=== PATIENT | female | born 1995 | race Caucasian/White ===

== ENCOUNTER 2020-04-26 07:48 | Outpatient (CLI) | payer OTHER, SELFPAY ==
--- NOTE | ~2020-04-26 | PE_ITS ---
EXAMINATION: PET skull to mid thigh DATE: 04/26/2020 10:14 INDICATION: Hilar lymphadenopathy. TECHNIQUE: Blood glucose level was 82 mg/dL. 7.175 mCi of 18-fluorodeoxyglucose (18-FDG) was administ ered i.v. Low dose computed tomography (CT) images were acquired from the base of the brain to the pr oximal thighs for attenuation correction and anatomic localization. Automated exposure control was em ployed. Dose-length product (DLP) was 432 mGy-cm. Positron emission tomography (PET) images were acqu ired in the same distribution. COMPARISON: None FINDINGS: Head/neck: There is increased activity in the major salivary glands, oral cavity, palatine tonsils, a nd glottis without CT correlate, likely physiologic. There are no pathologically enlarged lymph nodes . Chest: There is mild scarring at the lung apices. There is a 9 mm nodule with eccentric calcification in right lower lobe without increased activity, likely benign. No pleural effusion. The heart size i s normal. No pericardial effusion. There is increased activity in a normal-sized calcified right joesph r lymph node. Abdomen/pelvis/proximal thighs: The liver, gallbladder, spleen, pancreas, adrenal glands, and kidneys are normal. There are no dilated loops of bowel. There is an intrauterine device in expected positio n. There are no pathologically enlarged lymph nodes. There is no free intraperitoneal fluid. There is no osseous malignancy. IMPRESSION: 1. Calcified right hilar lymph node with increased activity, consistent with granulomatous disease. Reviewed, dictated and finalized at location A. [employer] IMPRESSION: 1. Calcified right hilar lymph node with increased activity, consistent with gr anulomatous disease.
[2020-04-26 08:11] LABS: Glucose Point of Care 82 (65-105)
== END 2020-04-26 07:49 | disposition home or self-care (01) ==
PROVIDERS: PCP Nurse Practitioner; Visit Provider Nurse Practitioner
DX: R59.0 Localized enlarged lymph nodes (principal)
CPT/HCPCS: 78815; 82948; A9552

== ENCOUNTER 2021-03-15 10:50 | Emergency (ER) | payer OTHER, SELFPAY ==
--- NOTE | ~2021-03-15 | XR_ITS ---
EXAMINATION: XR chest 2V DATE: 03/15/2021 11:36 INDICATION: Cough. Left anterior chest wall pain. TECHNIQUE: Frontal and lateral views of the chest were obtained. COMPARISON: PET CT 04/26/2020 FINDINGS: A calcified right lung nodule is consistent with old granulomatous disease. No pneumonia, p leural effusion, or pneumothorax. The heart size is normal. IMPRESSION: 1. No acute cardiopulmonary disease. Reviewed, dictated and finalized at location B. [employer]
--- NOTE | 2021-03-15 11:01 | ED.URI ---
HPI - URI/Sore Throat General Chief Complaint: Upper Respiratory Infection Stated Complaint: cough,lt side rib pain Time Seen by Provider: 03/15/21 11:43 Source: patient and RN notes reviewed Mode of arrival: ambulatory Limitations: no limitations History of Present Illness HPI Narrative: 25-year-old female presents with concern for 2-week history of cough and left anterior chest wall pain. Reports pain worsens with movements, coughing, deep breathing. Reports tender to touch. Reports the pain setting gradually has worsened the last day. Reports during her illness she has had 2 negative COVID tests. Ports taking ibuprofen for pain. Reports new onset fever, reports she is immunocompromised MD elicited complaint: cough and sore throat Related Data Home Medications Medication Instructions Recorded Confirmed cholecalciferol (vitamin D3) 125 mcg DAILY 03/15/21 03/15/21 folic acid 1 mg DAILY 03/15/21 03/15/21 levonorgestrel [Mirena] 1 insert INTRAUTERINE ONCE 03/15/21 03/15/21 Allergies Allergy/AdvReac Type Severity Reaction Status Date / Time No Known Allergies Allergy Verified 03/15/21 11:17 Review of Systems Review of Systems: CONSTITUTIONAL: Denies malaise, chills, sweats, or fever. EYES: Denies visual changes, redness, or discharge. ENT: Reports rhinorrhea, congestion, sinus pain, otalgia and sore throat. CARDIOVASCULAR: Denies chest pain, palpitations, or edema. RESPIRATORY: Reports cough. Denies dyspnea. GASTROINTESTINAL: Denies abdominal pain, nausea, vomiting, diarrhea SKIN: Denies rash or itching. MUSCULOSKELETAL: Denies myalgia. NEUROLOGIC: Denies headache. All systems reviewed & are unremarkable except as noted in HPI and below PMFSH Comments At time of signature, agree with nursing past medical, surgical, social and family history. There is no relevant family history pertinent to the presenting complaint Exam Narrative: GENERAL: Well-appearing, well-nourished, and in no acute distress. HEAD: Normocephalic EYES: PERRLA, conjunctivae clear ENT: Nares clear, turbinates edematous and erythematous, clear discharge. Mucous membranes moist. TM pearly burgess with dull light reflex bilaterally; no tragal tenderness. Oropharynx not erythematous without lesions. Tonsils not enlarged and without exudate, no drooling, no hoarseness, no trismus, uvula midline. NECK: Supple. No lymphadenopathy CHEST: Clear to auscultation, breath sounds equal. No wheezing, rhonchi, rales, or stridor. No respiratory distress, speaks in full sentences. HEART: Regular rate and rhythm. No murmur heard. SKIN: Warm, dry, no rash. NEURO: Alert and oriented x3. PSYCH: Normal mood and affect Course Course Emergency Course: Patient is aware of diagnosis, understands and agrees to treatment plan. Anticipatory guidance given. Patient agrees to follow-up as directed and is aware of reasons to seek care at the emergency department. Portions of this record may have been created with voice recognition software Level of Care: Express Care Visit Vital Signs Vital signs: Vital Signs Temperature 99.3 F 03/15/21 11:52 Pulse Rate 109 H 03/15/21 11:52 Respiratory Rate 18 03/15/21 11:52 Blood Pressure 106/79 03/15/21 11:52 Pulse Oximetry 99 03/15/21 11:52 Temperature 99.3 F 03/15/21 11:52 Pulse Rate 109 H 03/15/21 11:52 Respiratory Rate 18 03/15/21 11:52 Blood Pressure 106/79 03/15/21 11:52 Pulse Oximetry 99 03/15/21 11:52 Reviewed. MDM - URI/Sore Throat MDM Narrative Medical decision making narrative: Differential diagnosis considered: [place] virus, strep pharyngitis, allergic rhinitis, upper respiratory tract infection, sinusitis, rhinosinusitis, nasopharyngitis. viral pharyngitis, otitis media, otitis externa, pneumonia, bronchitis, viral cough syndrome, viral syndrome, and influenza. Exam findings show no acute concerns or changes; patient is non-toxic appearing and is in no distress. Patient is appropriate for out
[2021-03-15 11:52] VITALS: BP 106/79; PULSE 109; RESP 18; TEMP 37.4; O2SAT 99
== END 2021-03-15 12:00 | disposition home or self-care (01) ==
PROVIDERS: Emergency Provider Nurse Practitioner
DX: R05.9 Cough, unspecified (principal); R07.89 Other chest pain
CPT/HCPCS: 71046; 99213; G0463